=== PATIENT | male | born 1970 ===

== ENCOUNTER → 2024-06-27 11:12 | Outpatient (REF) | payer OTHER, SELFPAY ==
[2024-06-27 12:59] LABS: Rubella Positive
[2024-06-29 12:18] LABS: Quantiferon Mitogen minus NIL 9.95 IU/mL; Quantiferon NIL 0.05 IU/mL; Quantiferon Plus TB2 minus NIL 0.03 IU/mL (<=0.34); Quantiferon TB Gold Plus Negative (Negative)
== END ==
LOC: OHS 11:12
PROVIDERS: ATTENDING PHYSICIAN Nurse Practitioner Family
DX: Z23 Encounter for immunization (principal)
CPT/HCPCS: 36415; 86480; 86735; 86762; 86765; 86787

== ENCOUNTER 2024-08-01 14:08 | Emergency (ER) | payer OTHER, SELFPAY ==
[2024-08-01 14:09] VITALS: BP 146/99
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
[2024-08-01] MEDS: MOTRIN 600 MG PO (15:38)
[2024-08-01 15:44] VITALS: BP 147/94
[2024-08-01 16:06] VITALS: BP 147/94
== END 2024-08-01 16:07 | disposition home or self-care (01) ==
LOC: EMR 14:08
PROVIDERS: EMERGENCY PHYSICIAN Emergency Medicine
DX: S16.1XXA Strain of muscle, fascia and tendon at neck level, initial encounter (principal); S39.012A Strain of muscle, fascia and tendon of lower back, initial encounter; R42 Dizziness and giddiness; V43.51XA Car driver injured in collision with sport utility vehicle in traffic accident, initial encounter; Y92.410 Unspecified street and highway as the place of occurrence of the external cause; E11.9 Type 2 diabetes mellitus without complications; E78.00 Pure hypercholesterolemia, unspecified; I10 Essential (primary) hypertension; Z56.0 Unemployment, unspecified; Z59.71 Insufficient health insurance coverage; Z79.84 Long term (current) use of oral hypoglycemic drugs
CPT/HCPCS: 99283